=== PATIENT | male | born 1970 | race Caucasian/White ===

== ENCOUNTER 2023-03-31 10:08 | Outpatient (CLI) | payer OTHER ==
[~2023-03-31] VITALS: Ht 193 cm; Wt 118.8 kg
[2023-03-31] MEDS ORDERED: albuterol 2.5 MG/3 ML nebule NEB ONE (10:35)
== END 2023-03-31 23:59 | disposition home or self-care (01) ==
LOC: RT 10:08
PROVIDERS: ATTEND Chiropractor
DX: R06.02 Shortness of breath (principal)
CPT/HCPCS: 94060; 94760